=== PATIENT | female | born 1960 | race Caucasian/White ===

== ENCOUNTER 2019-01-25 15:38 | Emergency (ER) | payer MEDICARE ==
[2019-01-25 16:26] LABS: #Basophils 0.1 thou/uL (0.0-0.2); #Eosinphils 0.2 thou/uL (0.0-0.7); #Lymphocytes 3.3 thou/uL (1.20-3.40); #Monocytes 0.8 thou/uL (0.11-0.59); #Neutrophils 3.4 thou/uL (1.40-6.50); %Basophils 1.7 % (0.0-1.0); %Eosinophils 2.6 % (0.0-10.0); %Lymphocytes 42.2 % (21.0-51.0); %Monocytes 10.1 % (0.0-10.0); %Neutrophils 43.5 % (42.0-75.0); Hemoglobin 15.1 g/dL (12.0-16.0); Mean Corpuscular HGB CONC 32.6 g/dL (32.0-36.0); Mean Corpuscular Hemoglobin 29.1 pg (27.0-31.0); Mean Corpuscular Volume 89.2 fL (78.0-98.0); Mean Platelet Volume 8.1 fL (7.4-10.4); Platelet Count 361 thou/uL (130-400); RBC Distribution Width 13.6 % (11.5-14.5); White Blood Cell (WBC) Count 7.8 thou/uL (4.8-10.8)
--- NOTE | 2019-01-25 16:28 | RAD ---
CHEST ONE VIEW: 01/25/19 INDICATION: Shortness of breath, chest pain. COMPARISON: Prior exam dated 10/05/16. FINDINGS: The lungs are clear. Heart size is normal. No acute osseous abnormality is evident. IMPRESSION: No acute cardiopulmonary abnormality. POS: OFF
[2019-01-25 16:46] LABS: ALT (SGPT) 36 U/L (8-55); AST (SGOT) 24 U/L (5-34); Albumin 4.2 g/dL (3.5-5.0); Alkaline Phosphatase 145 U/L (40-150); Anion Gap 13 mmol/L (10-20); BUN (Urea Nitrogen) 16 mg/dL (9.8-20.1); Bilirubin, Total 0.3 mg/dL (0.2-1.2); CK (CPK) 149 U/L (29-168); Calc. Creatinine Clearance 0 mL/min (70-130); Calcium 9.9 mg/dL (7.8-10.44); Carbon Dioxide 27 mmol/L (22-29); Chloride 103 mmol/L (98-107); Estimated GFR-MDRD 71; Globulin 2.6 g/dL (2.4-3.5); Potassium 4.5 mmol/L (3.5-5.1); Protein, Total 6.8 g/dL (6.0-8.3); Sodium 138 mmol/L (136-145)
[2019-01-25 16:48] LABS: Glucose 42 mg/dL (70-105)
[2019-01-25] MEDS ORDERED: methylPREDNISolone Sod Succ/PF 125 MG/2 ML VIAL ONE (17:49)
== END 2019-01-25 19:30 | disposition home or self-care (01) ==
LOC: ERS 15:38
DX: J98.01 Acute bronchospasm (principal); J44.9 Chronic obstructive pulmonary disease, unspecified; Z79.899 Other long term (current) drug therapy
CPT/HCPCS: 36415; 36416; 71045; 80053; 82550; 83880; 84484; 85025; 93005; 94640; 94760; 96374; J2930; J7620

== ENCOUNTER 2019-04-03 09:02 | Outpatient (CLI) | payer MEDICARE ==
--- NOTE | 2019-04-03 09:47 | ULT ---
Thyroid ultrasound: 04/03/2019 COMPARISON: None HISTORY: Evaluate thyroid mass. The patient reports a history of thyroid biopsy. TECHNIQUE: Multiplanar grayscale sonographic imaging of the thyroid gland obtained. FINDINGS: The thyroid isthmus measures 3 mm, within normal limits. The right lobe measures 5.0 x 2.6 x 3.0 cm and the left lobe measures 3.5 x 1.2 x 1.2 cm. There is a dominant solid nodule within the right lobe of the thyroid gland measuring 3.7 x 3.1 x 3.0 cm. There are 3 tiny hypoechoic nodules within the left lobe measuring up to 4-5 mm. IMPRESSION: Solid dominant right thyroid nodule. Evaluation of this nodule is limited without compari son imaging. Without any prior history, this nodule would correlate with a TI-RADS category 3-mildly suspicious nodule. As it measures greater than 2.5 cm, fine-needle aspiration would be recom mended. However, the patient reports a history of thyroid biopsy. Thus, correlation with prior biopsy results and location of prior biopsy advised. In addition, comparison to prior imaging is advi sed.
--- NOTE | 2019-04-03 09:51 | MMO ---
Bilateral MAMMO Bilat Screen [facility]. CLINICAL HISTORY: Patient is 58 years old and is seen for screening. The patient has no family history of breast cancer. The patient has no personal history of cancer. VIEWS: The views performed were: bilateral craniocaudal with tomosynthesis and bilateral mediolateral oblique with tomosynthesis. This study has been interpreted with the assistance of computer-aided detection. MAMMOGRAM FINDINGS: The breasts are heterogeneously dense, which could obscure a lesion on mammography. There are no suspicious masses, suspicious calcifications, or new areas of architectural distortion. IMPRESSION: THERE IS NO MAMMOGRAPHIC EVIDENCE OF MALIGNANCY. A ROUTINE FOLLOW-UP MAMMOGRAM IN 1 YEAR IS RECOMMENDED. THE RESULTS OF THIS EXAM WERE SENT TO THE PATIENT. ACR BI-RADS Category 1 - Negative MAMMOGRAPHY NOTE: 1. A negative mammogram report should not delay a biopsy if a dominant of clinically suspicious mass is present. 2. Approximately 10% to 15% of breast cancers are not detected by mammography. 3. Adenosis and dense breasts may obscure an underlying neoplasm. Reported by: SAULO ATWOOD MD Electonically Signed: [id number]
== END 2019-04-03 09:03 | disposition home or self-care (01) ==
LOC: BICMAMMO 09:02
PROVIDERS: ATTEND Family Medicine
DX: E07.9 Disorder of thyroid, unspecified (principal); E04.1 Nontoxic single thyroid nodule
CPT/HCPCS: 76536; 77063; 77067

== ENCOUNTER 2020-05-14 13:38 | Outpatient (CLI) | payer MEDICARE ==
--- NOTE | 2020-05-14 15:12 | MRI ---
MRI of the cervical spine without contrast: 05/14/2020 COMPARISON: None HISTORY: Cervical spondylosis with myelopathy, left arm numbness TECHNIQUE: Multiplanar multisequence MR imaging of the cervical spine provided with and without contr ast FINDINGS: There is heterogeneity and T2 hyperintensity within the partially imaged right lobe of the thyroid gland suggesting a prominent right thyroid nodule, as seen on prior thyroid ultrasound performed 04/03/2019. Please see thyroid ultrasound dictation from that study. The sagittal STIR imaging demonstrates no focal area of osseous marrow edema. There is mild anterolisthesis of C7 on T1 measuring approximately 4 mm. C2-3: Disc desiccation. Mild bilateral facet hypertrophy. No significant central canal or neural fora christopher stenosis. C3-4: There is disc space narrowing with disc desiccation and a disc osteophyte complex. Anterior ost eophyte formation noted. Bilateral facet and uncovertebral osteophyte formation noted, left greater than right. No significant central canal stenosis. Mild right and moderate/severe left neural foramin al stenosis. C4-5: Disc space narrowing with disc desiccation and a disc osteophyte complex. Anterior osteophyte f ormation. Moderate central canal stenosis with moderate/severe bilateral neural foraminal stenosis. C5-6: Disc space narrowing with disc desiccation and anterior osteophyte formation and a disc osteoph yte complex. Moderate/severe central canal stenosis. Bilateral facet and uncovertebral osteophyte formation with moderate left and severe right neural foraminal stenosis. C6-7: There is disc space narrowing and disc desiccation with anterior osteophyte formation. Moderate central canal stenosis. Bilateral facet and uncovertebral osteophyte formation, left greater than right. Moderate right and severe left neural foraminal stenosis. C7-T1: Disc space narrowing with disc desiccation. Bilateral facet and uncovertebral osteophyte forma tion, left greater than right. Mild right and moderate left neural foraminal stenosis. Mild central canal stenosis. No focal area of abnormal signal intensity within the cervical cord. IMPRESSION: Prominent multilevel cervical spine degenerative change. Prominent partially visualized right thyroid nodule.
--- NOTE | 2020-05-14 15:23 | RAD ---
Lumbar spine 4 views: 05/14/2020 HISTORY: Neurogenic claudication FINDINGS: Bilateral L5 and L4 pedicle screws with vertically oriented interlocking rods noted. Clips in the right upper quadrant suggest prior cholecystectomy. There is disc space narrowing with degenerative endplate change and anterior osteophyte formation at L4-5 and to a lesser degree, L5-S1. On the neutral lateral exam there is anterolisthesis at L4-5 measuring 1.4 cm. Multilevel lower lumbar spine facet hypertrophy present. Scattered atherosclerotic calcification of the abdominal aorta noted. The anterolisthesis at L4-5 does not appear significantly changed on the flexion or extension views. No acute fracture is apparent. Exaggerated lumbar lordosis present. IMPRESSION: Postoperative and degenerative changes within the lumbar spine as detailed above.
== END 2020-05-14 13:39 | disposition home or self-care (01) ==
LOC: BICMRI 13:38
PROVIDERS: ATTEND Neurological Surgery
DX: M47.12 Other spondylosis with myelopathy, cervical region (principal); M48.062 Spinal stenosis, lumbar region with neurogenic claudication; M47.816 Spondylosis without myelopathy or radiculopathy, lumbar region; E04.1 Nontoxic single thyroid nodule; Z98.890 Other specified postprocedural states
CPT/HCPCS: 72110; 72141

== ENCOUNTER 2020-06-11 06:34 | Outpatient (CLI) | payer MEDICARE ==
[2020-06-11 12:05] LABS: Hemoglobin 16.4 g/dL (12.0-16.0); Mean Corpuscular Hemoglobin 29.9 PG (27.0-33.0); Mean Corpuscular Volume 93.3 fl (80.0-100.0); Mean Platelet Volume 10.4 fl (7.4-10.4); Platelet Count 320 10x3/uL (130-400); RBC Distribution Width 14.5 % (11.5-14.5); Red Blood Cell (RBC) Count 5.49 10x6/uL (3.90-5.20); White Blood Cell (WBC) Count 15.5 10x3/uL (4.5-11.0)
[2020-06-11 12:34] LABS: Anion Gap 15 mmol/L (10-20); BUN (Urea Nitrogen) 17 mg/dL (9.8-20.1); Calc. Creatinine Clearance 0 mL/min (70-130); Calcium 9.4 mg/dL (7.8-10.44); Carbon Dioxide 31 mmol/L (22-29); Chloride 99 mmol/L (98-107); Glucose 108 mg/dL (70-105); Sodium 140 mmol/L (136-145)
[2020-06-11 17:43] LABS: SARS-CoV-2 MS2 Positive; SARS-CoV-2 N Gene Negative; SARS-CoV-2 S Gene Negative; SARS-CoV-2 by NAA Not Detected (NotDetected); SARS-CoV-2 orf1ab Negative
== END 2020-06-11 06:35 | disposition home or self-care (01) ==
LOC: LABBT 06:34
PROVIDERS: ATTEND Neurological Surgery
DX: Z01.818 Encounter for other preprocedural examination (principal); M47.12 Other spondylosis with myelopathy, cervical region; Z20.828 Contact with and (suspected) exposure to other viral communicable diseases
CPT/HCPCS: 80048; 85027; U0003; 87635; 93005; 93010

== ENCOUNTER 2020-06-11 11:15 | Inpatient (IN) | payer MEDICARE ==
[2020-06-10 11:07] VITALS: BMI 23.3
[2020-06-16] MEDS ORDERED: Bacitracin Zinc Ointment 30 gm TUBE ONE (08:56)
[2020-06-16] MEDS ORDERED: Fentanyl 100 MCG/2 ML VIAL ONE (09:14)
[2020-06-16] MEDS ORDERED: Midazolam HCl 2 mg/2 ml Vial ONE (09:15)
[2020-06-16] MEDS ORDERED: Lidocaine 1% PF 5 ML VIAL ONE (10:24)
[2020-06-16] MEDS ORDERED: Dexamethasone 20 MG/5 ML VIAL ONE (10:24)
[2020-06-16] MEDS ORDERED: Ondansetron PF 4 MG/2 ML Vial ONE (10:24)
[2020-06-16] MEDS ORDERED: PHENYLEPHRINE-NS 100 MCG/ML 10 ML SYRINGE ONE (10:24)
[2020-06-16] MEDS ORDERED: PROPOFOL 200 MG/20 ML VIAL ONE (10:24)
[2020-06-16] MEDS ORDERED: ePHEDrine 50 MG/ML VIAL ONE (10:24)
[2020-06-16] MEDS ORDERED: Rocuronium Bromide 10 MG/ML (10ML VIAL) ONE (10:24)
[2020-06-16] MEDS ORDERED: SUGAMMADEX SODIUM 200 MG/2 ML VIAL ONE (10:33)
[2020-06-16] MEDS ORDERED: hydrALAZINE 20 MG/ML VIAL SLOW IVP PRN (11:17)
[2020-06-16] MEDS ORDERED: Labetalol HCl 100 MG/20 ML VIAL SLOW IVP PRN (11:17)
--- NOTE | 2020-06-16 11:55 | OP ---
DATE OF PROCEDURE: 06/16/2020 DATA COLLECTOR: Varghese. PROCEDURES PERFORMED: Anterior cervical diskectomy, C4-C5, interbody arthrodesis, intervertebral biomechanical device, local morselized autograft, demineralized bone matrix, anterior titanium instrumentation, C4-C5; posterior approach, C4-C5, laminectomy, posterolateral arthrodesis, C4-C5, lateral mass screw instrumentation, demineralized bone matrix, local morselized autograft. DESCRIPTION OF PROCEDURE: The patient was brought into the operating room and intubated. She was positioned supine with head in modest extension on a gel-filled donut. An incision was made in the right precervical area and dissected medial to the sternocleidomastoid muscle. We identified the anterior cervical spine, and the level was confirmed by x-ray. We debrided anterior osteophytes, placed distraction across C4 and C5, and completely decompressed the intervertebral disk using operative microscope and microdissection techniques. The spinal cord was completely decompressed. Bony endplates were then decorticated for the purpose of arthrodesis and appropriate-sized intervertebral biomechanical PEEK device was brought into the field. It was filled with demineralized bone matrix; local morselized autograft, and tapped in place securely at C4-C5. An anterior plate was brought into the field and secured to C4 and C5 using two 14-mm screws at each level. It should be noted that the plate was separate and distinct from the intervertebral device and not integral to it. The wound was then extensively irrigated, MAC hemostasis was secured, and the wound was closed in anatomic layers. The patient was then rolled into prone position on gel-filled chest rolls with the head fixed in a [employer]icit[employer] head stock transfer clerk in a neutral position. A midline incision was made and C4-C5 were exposed and confirmed by x-ray. We performed complete C5, complete C4 laminectomy, completely decompression of spinal cord from this approach. We next placed lateral mass screws at right C4 and right C5. The jame was secured between the screws, connected by nuts, which were final tightened. The wound was extensively irrigated and MAC hemostasis was secured. Posterolateral surfaces were prepared for the purpose of arthrodesis and a combination of demineralized bone matrix and local morselized autograft was laid over the left lamina and posterolateral surfaces for the purpose of arthrodesis. Vancomycin powder was applied and the wound was then closed in anatomic layers. Job ID: [id number]
[2020-06-16] MEDS ORDERED: Ondansetron PF 4 MG/2 ML Vial IVP PRN (12:07)
[2020-06-16] MEDS ORDERED: PROVENTIL INHALER 6.7 G (200 INHALATIONS) INH PRN (12:11)
[2020-06-16] MEDS ORDERED: Promethazine 25 MG TAB PO PRN (12:15)
[2020-06-16] MEDS ORDERED: Morphine 2 MG/ML VIAL SLOW IVP PRN (12:15)
[2020-06-16] MEDS ORDERED: Mag-Al 1200 mg/1200 mg/30 ML UDCUP PO PRN (12:15)
[2020-06-16] MEDS ORDERED: Promethazine HCl 25 MG/ML VIAL IM PRN (12:15)
[2020-06-16] MEDS ORDERED: HYDROcodone/Acetaminophen 10/325 mg Tablet PO PRN (12:15)
[2020-06-16] MEDS ORDERED: Morphine 4 MG/ML VIAL SLOW IVP PRN (12:15)
[2020-06-16] MEDS ORDERED: Promethazine HCl 12.5 MG SUPP PR PRN (12:15)
[2020-06-16] MEDS ORDERED: traMADol HCl 50 MG TAB PO PRN ×2 (12:15)
[2020-06-16] MEDS ORDERED: diphenhydrAMINE 50 MG/ML VIAL IVP PRN (12:15)
[2020-06-16] MEDS ORDERED: Milk Of Magnesia 30 ML UDCUP PO PRN (12:15)
[2020-06-16] MEDS ORDERED: diphenhydrAMINE 25 MG CAP PO PRN (12:15)
[2020-06-16] MEDS ORDERED: tiZANidine HCl 4 MG TAB PO PRN (12:15)
[2020-06-16] MEDS: HYDROcodone/Acetaminophen 10/325 mg Tablet PO PRN ×2 (14:38→23:49)
[2020-06-16] MEDS: CEFAZOLIN 2 GM in Premix Bag 1 BAG IVPB SCH ×2 (17:14→23:04)
[2020-06-16] MEDS: Sodium Chloride 0.9% 1,000 ML IV SCH ×2 (17:15→23:50)
[2020-06-16] MEDS: Carvedilol 6.25 MG TAB PO SCH (17:15)
[2020-06-16] MEDS ORDERED: Atorvastatin Calcium 10 MG TAB PO SCH (21:00)
[2020-06-17] MEDS ORDERED: Spironolactone 25 MG TAB PO SCH (08:00)
[2020-06-17 08:16] VITALS: BP 106/65; TEMP 98.1
[2020-06-17] MEDS: Carvedilol 6.25 MG TAB PO SCH (08:26)
[2020-06-17] MEDS: HYDROcodone/Acetaminophen 10/325 mg Tablet PO PRN (08:27)
[2020-06-17] MEDS ORDERED: Cephalexin 250 MG CAP PO SCH (09:00)
[2020-06-17] MEDS ORDERED: Lisinopril 10 MG TAB PO SCH (09:00)
--- NOTE | 2020-06-17 13:40 | DIS ---
DATE OF ADMISSION: 06/16/2020 DATE OF DISCHARGE: 06/17/2020 Patient is a 59-year-old female, recently evaluated in our office for progressive balance issues and frequent falls. She was found to have severe stenosis at C4-C5 consistent with her myelopathic picture. Patient underwent anterior and posterior decompression and fusion at C4-C5 on 06/16/2020. Following the surgery, she was transitioned to the Med/Surg floor, where her pain has been well controlled with p.o. medications, she is tolerating a regular diet, and she is voiding appropriately. She has been ambulating easily in the hallways with her walker. Patient reports she is feeling well and she would like to return home today. I feel that this is appropriate and Dr. Hernandez is in agreement. I have gone ahead and discharged the patient to home. I will follow up with the patient in 2 weeks. She will resume home medications. I will prescribe Tylenol 3, Zanaflex, and Keflex postoperatively. [facility] prior to discharge. Job ID: [id number]
== END 2020-06-17 10:47 | disposition home or self-care (01) | DRG 454 ==
LOC: SURG A 06-16 07:02 → SURG B 06-16 13:00
PROVIDERS: ADMIT Neurological Surgery; ATTEND Neurological Surgery
PROC: 0RG10A0 Fusion of Cervical Vertebral Joint with Interbody Fusion Device, Anterior Approach, Anterior Column, Open Approach (ICD-10-PCS; principal; 2020-06-16)
PROC: 0RG10K1 Fusion of Cervical Vertebral Joint with Nonautologous Tissue Substitute, Posterior Approach, Posterior Column, Open Approach (ICD-10-PCS; 2020-06-16)
PROC: 00NW0ZZ Release Cervical Spinal Cord, Open Approach (ICD-10-PCS; 2020-06-16)
DX: M48.02 Spinal stenosis, cervical region (principal); M47.12 Other spondylosis with myelopathy, cervical region; Z88.2 Allergy status to sulfonamides; Z90.49 Acquired absence of other specified parts of digestive tract; Z90.89 Acquired absence of other organs; Z96.642 Presence of left artificial hip joint; I10 Essential (primary) hypertension; E03.9 Hypothyroidism, unspecified
CPT/HCPCS: 76000; C1713; C1768; C1776; J0690; J1100; J2250; J2405; J2704; J3010; J3370; J3490

== ENCOUNTER 2020-07-01 12:34 | Outpatient (CLI) | payer MEDICARE ==
--- NOTE | 2020-07-01 13:48 | RAD ---
Cervical spine 3 views: 07/01/2020 HISTORY: Cervical spondylosis with myelopathy, prior cervical spine surgery FINDINGS: Posterior cutaneous ted are noted in the lower cervical region/cervicothoracic region. There is anterior discectomy and fusion hardware at C4-5. Unilateral right-sided posterior fusion hardware noted at C5-6. The open-mouth odontoid view demonstrates a normal-appearing C1-2 articulation and dens. There is significant disc space narrowing with degenerative endplate change at C3-4, C5-6, and C6-7. The patient appears status post bilateral laminectomy and the C4, C5, and C6 levels. IMPRESSION: Postoperative and degenerative changes of the cervical spine as described above.
== END 2020-07-01 12:35 | disposition home or self-care (01) ==
LOC: TBSIIMAG 12:34
PROVIDERS: ATTEND Neurological Surgery
DX: M47.12 Other spondylosis with myelopathy, cervical region (principal); Z98.890 Other specified postprocedural states
CPT/HCPCS: 72040

== ENCOUNTER 2020-11-20 16:19 | Inpatient (IN) | payer MEDICARE ==
[2020-11-20 17:19] LABS: #Basophils 0.1 thou/uL (0.0-0.2); #Eosinphils 0.1 thou/uL (0.0-0.7); #Lymphocytes 1.5 thou/uL (1.20-3.40); #Monocytes 0.2 thou/uL (0.11-0.59); #Neutrophils 16.3 thou/uL (1.40-6.50); %Basophils 0.3 % (0.0-1.0); %Eosinophils 0.3 % (0.0-10.0); %Lymphocytes 8.1 % (21.0-51.0); %Monocytes 1.1 % (0.0-10.0); %Neutrophils 90.1 % (42.0-75.0); Hemoglobin 15.2 g/dL (12.0-16.0); Mean Corpuscular HGB CONC 32.2 g/dL (32.0-36.0); Mean Corpuscular Hemoglobin 29.2 pg (27.0-31.0); Mean Corpuscular Volume 90.6 fL (78.0-98.0); Mean Platelet Volume 8.2 fL (7.4-10.4); Platelet Count 316 thou/uL (130-400); RBC Distribution Width 13.8 % (11.5-14.5); White Blood Cell (WBC) Count 18.1 thou/uL (4.8-10.8)
[2020-11-20] MEDS ORDERED: Furosemide 40 MG/4 ML VIAL ONE (17:27)
[2020-11-20 19:55] LABS: Albumin 4.1 g/dL (3.5-5.0)
[2020-11-20 19:57] LABS: Calcium 9.1 mg/dL (7.8-10.44); Chloride 99 mmol/L (98-107); Potassium 4.5 mmol/L (3.5-5.1); Sodium 137 mmol/L (136-145)
[2020-11-20 19:58] LABS: Globulin 2.3 g/dL (2.4-3.5); Glucose 164 mg/dL (70-105); Protein, Total 6.4 g/dL (6.0-8.3)
[2020-11-20 19:59] LABS: Anion Gap 16 mmol/L (10-20); Carbon Dioxide 27 mmol/L (22-29)
[2020-11-20 20:00] LABS: Bilirubin, Total 0.3 mg/dL (0.2-1.2)
[2020-11-20 20:01] LABS: Alkaline Phosphatase 105 U/L (40-110); Calc. Creatinine Clearance 0 mL/min (70-130)
[2020-11-20 20:02] LABS: BUN (Urea Nitrogen) 18 mg/dL (9.8-20.1)
[2020-11-20 20:03] LABS: AST (SGOT) 16 U/L (5-34)
[2020-11-20 20:04] LABS: Lipase 32 U/L (8-78)
[2020-11-20 22:40] LABS: ALT (SGPT) 14 U/L (8-55)
[2020-11-20] MEDS ORDERED: Azithromycin 500 MG VIAL ONE (22:51)
[2020-11-20] MEDS ORDERED: Ondansetron ODT 4 MG TAB PO PRN (22:52)
[2020-11-20] MEDS ORDERED: Ondansetron PF 4 MG/2 ML Vial IVP PRN (22:52)
[2020-11-20] MEDS ORDERED: Acetaminophen 325 MG TAB PO PRN (22:52)
[2020-11-20] MEDS ORDERED: Morphine 2 MG/ML VIAL SLOW IVP PRN (23:27)
[2020-11-21 00:18] LABS: SARS-CoV-2 NAA Rapid Test Not Detected (NotDetected)
[2020-11-21 00:52] LABS: Lactic Acid 1.9 mmol/L (0.5-2.2)
[2020-11-21] MEDS: cefTRIAXone\\ROCEPHIN 1 GM in Sodium Chloride 0.9% 100 ML IVPB SCH ×2 (01:15→22:35)
[2020-11-21] MEDS: hydrALAZINE 20 MG/ML VIAL SLOW IVP PRN ×2 (01:50→06:00)
[2020-11-21 03:01] VITALS: BMI 24.4
[2020-11-21 05:27] LABS: Hemoglobin 14.2 g/dL (12.0-16.0); Lymphocytes 5 % (21-51); MDiff Complete? YES; Mean Corpuscular HGB CONC 31.8 g/dL (32.0-36.0); Mean Corpuscular Hemoglobin 28.8 pg (27.0-31.0); Mean Corpuscular Volume 90.8 fL (78.0-98.0); Mean Platelet Volume 8.3 fL (7.4-10.4); Monocytes 6 % (0-10); Neutrophil 89 % (42-75); Platelet Count 293 thou/uL (130-400); Platelet Morphology Comment Appears Adequate; RBC Distribution Width 13.8 % (11.5-14.5); RBC Morphology Normal; Red Blood Cell (RBC) Count 4.91 mill/uL (4.20-5.40); White Blood Cell (WBC) Count 16.7 thou/uL (4.8-10.8)
[2020-11-21 05:51] LABS: Anion Gap 13 mmol/L (10-20); BUN (Urea Nitrogen) 20 mg/dL (9.8-20.1); Calc. Creatinine Clearance 76 mL/min (70-130); Calcium 8.9 mg/dL (7.8-10.44); Carbon Dioxide 32 mmol/L (22-29); Chloride 97 mmol/L (98-107); Glucose 111 mg/dL (70-105); Potassium 4.3 mmol/L (3.5-5.1); Sodium 138 mmol/L (136-145); Troponin I Less than 0.010 ng/mL (< 0.028)
[2020-11-21] MEDS: Carvedilol 6.25 MG TAB PO SCH ×2 (08:32→18:24)
[2020-11-21] MEDS: Enoxaparin Sodium 40 MG/0.4 ML SYRINGE SC SCH (08:33)
[2020-11-21] MEDS: Spironolactone 25 MG TAB PO SCH (08:33)
[2020-11-21] MEDS ORDERED: Non-Formulary Item 1 EACH (Albuterol Sulfate [Proair Hfa] 8.5 GM Hfa.Aer.Ad) INH PRN (09:02)
[2020-11-21] MEDS ORDERED: Albuterol 200 PUFF (6.7GM INHALER) INH PRN (09:07)
[2020-11-21] MEDS ORDERED: Azithromycin 500 MG in Sodium Chloride 0.9% 250 ML 250 ML IVPB SCH (20:00)
[2020-11-22 05:56] LABS: #Basophils 0.1 thou/uL (0.0-0.2); #Lymphocytes 4.2 thou/uL (1.20-3.40); #Monocytes 1.1 thou/uL (0.11-0.59); #Neutrophils 12.6 thou/uL (1.40-6.50); %Basophils 0.4 % (0.0-1.0); %Eosinophils 0.2 % (0.0-10.0); %Lymphocytes 23.2 % (21.0-51.0); %Monocytes 6.3 % (0.0-10.0); %Neutrophils 69.9 % (42.0-75.0); Hemoglobin 14.5 g/dL (12.0-16.0); Mean Corpuscular HGB CONC 31.3 g/dL (32.0-36.0); Mean Corpuscular Hemoglobin 28.7 pg (27.0-31.0); Mean Corpuscular Volume 91.5 fL (78.0-98.0); Mean Platelet Volume 8.4 fL (7.4-10.4); Platelet Count 274 thou/uL (130-400); Red Blood Cell (RBC) Count 5.05 mill/uL (4.20-5.40)
[2020-11-22 06:12] LABS: Anion Gap 15 mmol/L (10-20); BUN (Urea Nitrogen) 21 mg/dL (9.8-20.1); Calc. Creatinine Clearance 70 mL/min (70-130); Calcium 8.5 mg/dL (7.8-10.44); Carbon Dioxide 26 mmol/L (22-29); Chloride 100 mmol/L (98-107); Glucose 87 mg/dL (70-105); Potassium 4.4 mmol/L (3.5-5.1); Sodium 137 mmol/L (136-145)
[2020-11-22] MEDS: Spironolactone 25 MG TAB PO SCH (09:33)
[2020-11-22] MEDS: Carvedilol 6.25 MG TAB PO SCH (09:34)
[2020-11-22] MEDS: Enoxaparin Sodium 40 MG/0.4 ML SYRINGE SC SCH (09:34)
[2020-11-22 11:29] VITALS: BP 139/87; TEMP 98
== END 2020-11-22 14:17 | disposition home or self-care (01) | DRG 871 ==
LOC: ERS 16:19 → SJJU 21:12
PROVIDERS: ADMIT Student in an Organized Health Care Education/Training Program; ATTEND Internal Medicine
DX: A41.9 Sepsis, unspecified organism (principal); J18.9 Pneumonia, unspecified organism; I50.22 Chronic systolic (congestive) heart failure; I45.2 Bifascicular block; I42.8 Other cardiomyopathies; J44.0 Chronic obstructive pulmonary disease with (acute) lower respiratory infection; Z20.822 Contact with and (suspected) exposure to COVID-19; I11.0 Hypertensive heart disease with heart failure; E78.5 Hyperlipidemia, unspecified; J44.9 Chronic obstructive pulmonary disease, unspecified; F17.210 Nicotine dependence, cigarettes, uncomplicated; Z96.642 Presence of left artificial hip joint; E03.9 Hypothyroidism, unspecified; Z79.82 Long term (current) use of aspirin; Z90.49 Acquired absence of other specified parts of digestive tract; Z88.2 Allergy status to sulfonamides; Z79.899 Other long term (current) drug therapy
CPT/HCPCS: 0240U; 36415; 71045; 80048; 80053; 83605; 83690; 83880; 84484; 85007; 85025; 85027; 87040; 93005; 93306; 94640; 96365; 96367; 96375; J0360; J0456; J0696; J1650; J1940; J3490; J7050; J7620

== ENCOUNTER 2020-12-01 10:41 | Outpatient (CLI) | payer MEDICARE | END 2020-12-01 10:42 | disposition home or self-care (01) | LOC: BICRAD 10:41 | PROVIDERS: ATTEND Nurse Practitioner Family | DX: R05 Cough (principal) | CPT/HCPCS: 71046 ==

== ENCOUNTER 2020-12-04 12:01 | Outpatient (CLI) | payer MEDICARE | END 2020-12-04 12:02 | disposition home or self-care (01) | LOC: CT 12:01 | PROVIDERS: ATTEND Nurse Practitioner Family | DX: J18.1 Lobar pneumonia, unspecified organism (principal); J18.9 Pneumonia, unspecified organism; R05 Cough; R06.02 Shortness of breath; Z72.0 Tobacco use; C38.3 Malignant neoplasm of mediastinum, part unspecified; C78.2 Secondary malignant neoplasm of pleura; M84.48XA Pathological fracture, other site, initial encounter for fracture; E04.1 Nontoxic single thyroid nodule | CPT/HCPCS: 71260 ==